=== PATIENT | male | born 1970 | race Caucasian/White ===

== ENCOUNTER 2017-08-01 05:59 | Emergency (ER) | payer BC ==
[2017-08-01 06:12] VITALS: BP 138/89
[2017-08-01] MEDS ORDERED: Orphenadrine 100 MG Tab.ER PO STA (07:02)
--- NOTE | 2017-08-01 07:10 | EDM.PDOC ---
ED HPI GENERAL MEDICAL PROBLEM - General Chief Complaint: Chest Pain Stated Complaint: LEFT SIDE PAIN/RIGHT SIDE PINCHED NERVE Time Seen by Provider: 08/01/17 06:20 Source of Information: Reports: Patient, Family (), RN Notes Reviewed History Limitations: Reports: No Limitations - History of Present Illness INITIAL COMMENTS - FREE TEXT/NARRATIVE: The patient states that he has had sharp, stabbing pain to his lower left anterior ribs since Friday night, 07/30/2017. He states that it was worse yesterday morning, 07/31/2016. The pain is only present if he moves, however, the pain is not present if he breathes deeply without bodily movement. He states that he has associated dyspnea, and feels quite anxious. He denies nausea or diaphoresis. No recent fever. He has an occasional dry cough. The pain is made worse with a cough. The patient states that he had similar symptoms on 09/03/2013, and was diagnosed with pleurisy. He was prescribed Motrin, which he continues to take. the patient also reports lower back pain with radiation down both lower extremities for the past 3 weeks. He states that he has a history of lumbar arthritis, status post a laminectomy 05/[address] Ye. He has been in contact with Dr. Ye, who advised that he get a MRI of the lumbar spine, but for reasons unclear, did not order a MRI himself. The patient has an appointment to see his PCP, Carole Remy, at 15:00 today, to discuss the matter.the patient states that he was seen at the [facility] in clinic on 07/18. He states that no tests were done, but he was prescribed gabapentin and prednisone, which helped initially, but has since ceased to help. Left Chest Pain Score (Numeric/FACES): 8 - Related Data Allergies Allergy/AdvReac Type Severity Reaction Status Date / Time varenicline tartrate Allergy Other Verified 08/01/17 06:10 [From Chantix] Home Meds: Home Meds ALPRAZolam [Xanax] 1 mg PO BID PRN 02/26/14 [History] Lisinopril [Zestril] 20 mg PO DAILY 02/26/14 [History] Gabapentin [Neurontin] 100 mg PO TID 08/01/17 [History] Magnesium Chloride [Slow-Mag] 1 tab PO BID 08/01/17 [History] Meloxicam 15 mg PO DAILY 08/01/17 [History] Orphenadrine [Norflex] 1 tab PO Q12H #20 tab.er 08/01/17 [Rx] buPROPion HCl [Wellbutrin Xl] 300 mg PO DAILY 08/01/17 [History] Past Medical History Cardiovascular History: Reports: Hypertension Respiratory History: Reports: Sleep Apnea Psychiatric History: Reports: Anxiety, Depression - Past Surgical History HEENT Surgical History: Reports: Oral Surgery (wisdom teeth extraction) Neurological Surgical History: Reports: Lumbar Spine (laminectomy May 2016, per Dr. Ye) Musculoskeletal Surgical History: Reports: Arthroscopic Knee (left, for torn meniscus, Nov 2008), Other (See Below) Other Musculoskeletal Surgeries/Procedures:: Bone sprus removed. 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) ED ROS GENERAL - Review of Systems Review Of Systems: See Below Constitutional: Reports: No Symptoms HEENT: Reports: No Symptoms Respiratory: Reports: No Symptoms Cardiovascular: Reports: No Symptoms Endocrine: Reports: No Symptoms GI/Abdominal: Reports: No Symptoms : Reports: No Symptoms Musculoskeletal: Reports: Back Pain (as per the HPI) Skin: Reports: No Symptoms Neurological: Reports: No Symptoms Psychiatric: Reports: No Symptoms Hematologic/Lymphatic: Reports: No Symptoms Immunologic: Reports: No Symptoms ED EXAM, GENERAL - Physical Exam Exam: See Below Exam Limited By: No Limitations General Appearance: Alert, WD/WN, No Apparent Distress Eye Exam: Bilateral Eye: Normal Inspection Ears: Normal External Exam, Hearing Grossly Normal Nose: Normal Inspection, No Blood Throat/Mouth: Normal Inspection, Normal Lips, Normal Voice, No Airway Compromise Head: Atraumatic, Normocephalic Neck: Normal Inspection, Full Range of Motion Respiratory/Chest: No Respiratory Distress, Lungs Clear, Normal Breath Sounds, No Accessory Muscle Use, Other (Reproducible tenderness to palpation of the anterior lower left ribs. No visible abnormality to this area, such as swelling , erythema, ecchymosis, or abrasion.) Cardiovascular: Normal Peripheral Pulses, Regular Rate, Rhythm, No Gallop, No JVD, No Murmur, No Rub GI/Abdominal: Normal Bowel Sounds, Soft, Non-Tender, No Organomegaly, No Distention, No Abnormal Bruit, No Mass (Male) Exam: Deferred Rectal (Males) Exam: Deferred Extremities: Normal Inspection, Normal Range of Motion, No Pedal Edema, Normal Capillary Refill Neurological: Alert, Oriented, Normal Cognition, No Motor/Sensory Deficits Psychiatric: Normal Affect Skin Exam: Warm, Dry, Intact, Normal Color, No Rash Course - Vital Signs Last Recorded V/S: Last Vital Signs Temp 36.2 C 08/01/17 06:10 Pulse 92 08/01/17 06:10 Resp 12 08/01/17 06:10 BP 138/89 08/01/17 06:10 Pulse Ox 98 08/01/17 06:10 - Orders/Labs/Meds Meds: Medications Discontinued Medications Generic Name Dose Route Start Last Admin Trade Name Lisa PRN Reason Stop Dose Admin Orphenadrine Citrate 100 mg 08/01/17 07:02 Norflex PO 08/01/17 07:03 ONETIME STA - Re-Assessments/Exams Free Text/Narrative Re-Assessment/Exam: 08/01/17 07:04 The patient has reproducible tenderness to palpation of the inferior anterior aspect of his left ribs, consistent with a muscle spasm or strain. I will start the patient on Norflex. He is also complaining of lower back pain with radiation down both lower extremities, however, this is a recurrent problem, he is already under the care of Dr. Ye for it, and has an appointment to see his PCP, Carole Remy, later today,to arrange for a MRI. I am not going to address this issue. Departure - Departure Time of Disposition: 07:06 Disposition: Home, Self-Care 01 Condition: Good Clinical Impression: Muscle spasm - Discharge Information Referrals: Carole Remy [facility]ER [Primary Care Provider] - Additional Instructions: You were seen in the emergency room for lower left rib pain. Based on your history and physical examination, your pain is MOST LIKELY due to a spasm or strain of musculature in the area. You have been started on the muscle relaxant Norflex. Take one tablet every 12 hours, as prescribed. If you take Norflex, do not also take Flexeril (cyclobenzaprine). Follow-up with your PCP, Carole Remy, at your previously scheduled appointment at 15:00 today. If any other problems, please do not hesitate to return to the ER.
== END 2017-08-01 07:24 | disposition home or self-care (01) ==
LOC: JD.ED 05:59
DX: M62.838 Other muscle spasm (principal); F41.9 Anxiety disorder, unspecified; F32.9 Major depressive disorder, single episode, unspecified; F17.210 Nicotine dependence, cigarettes, uncomplicated; Z79.899 Other long term (current) drug therapy
CPT/HCPCS: 99284; A9270